=== PATIENT | female | born 1940 | race Caucasian/White ===

== ENCOUNTER 2020-06-23 12:53 | Outpatient (CLI) | payer MEDICARE, SELFPAY ==
--- NOTE | 2020-06-23 12:59 | XR_ITS ---
WS: [id number] Bone mineral density performed on a MiniVax IDXA, 06/23/2020 Clinical data: ASYMTOMATIC MENOPAUSAL STATE Comparison study: DEXA scan, 05/07/2018. Findings: The first 4 lumbar vertebral bodies demonstrated the bone mineral density of 1.613 g/cm2 for a young adult T score of 3.6. Measurement of the left hip reveals a bone mineral density of 0.923 g/cm2 with a young adult T score of -0.7. Measurement of the right hip reveals the bone mineral density of 0.943 g/cm2 for young adult T score of -0.5. XR/XR DEXA axial skeleton* [id number] Impression: 1. Normal bone mineral density of the lumbar spine with minimal decrease in bon e mineral density compared to prior study. 2. Normal bone mineral density of both hips with moderate decrease in bone mine ral density of density compared to prior study.
--- NOTE | 2020-06-23 13:01 | XR_ITS ---
WS: [id number] Right knee, 3 views, 06/23/2020 Clinical Data: UNILATERAL PRIMARY OSTEOARTHRITIS, UNSPECIFIED KNEE Comparison: None. Findings: No fractures or dislocations are seen. There is medial joint compartment narrowing. There are spurs o f the medial and lateral tibial plateaus and of the medial and lateral lateral femoral condyles. The patella shows posterior spurring.The soft tissues are normal. XR/XR knee RT 3V* [id number] Impression: Moderate osteoarthritis involving the medial joint space and posterior patella of the right knee.
--- NOTE | 2020-06-23 13:01 | XR_ITS ---
WS: [id number] Left knee, 3 views, 06/23/2020 Clinical Data: UNILATERAL PRIMARY OSTEOARTHRITIS, UNSPECIFIED KNEE Comparison: None. Findings: No fractures or dislocations are seen. There is medial joint compartment narrowing with spurring of t he medial and lateral tibial plateaus and medial lateral femoral condyles. There is posterior patella r spurring.The soft tissues are normal XR/XR knee LT 3V* [id number] Impression: Osteoarthritis of the left knee involving mostly the medial joint compartment a nd posterior patella.
== END 2020-06-23 12:54 | disposition home or self-care (01) ==
PROVIDERS: PCP Family Medicine; Visit Provider Family Medicine
DX: Z78.0 Asymptomatic menopausal state (principal); M17.0 Bilateral primary osteoarthritis of knee
CPT/HCPCS: 73562; 77080

== ENCOUNTER 2020-08-18 10:53 | Outpatient (CLI) | payer MEDICARE, SELFPAY ==
--- NOTE | 2020-08-18 10:58 | MM_ITS ---
WS: [id number] BILATERAL SCREENING DIGITAL MAMMOGRAM WITH CAD HISTORY: SCREENING COMPARISON: 05/07/2018 and 01/24/2017 Bilateral CC and MLO views submitted. Computer aided detection analyzed. Breast composition: There are scattered areas of fibroglandular density. No suspicious masses, microc alcifications or architectural distortion. Benign calcifications in each breast. MM/[place] [id number] IMPRESSION: BI-RADS: 2-Benign FOLLOW UP: 1 Year Follow-up
== END 2020-08-18 10:54 | disposition home or self-care (01) ==
LOC: RADSHAW 10:57
PROVIDERS: PCP Family Medicine; Visit Provider Family Medicine
DX: Z12.31 Encounter for screening mammogram for malignant neoplasm of breast (principal)
CPT/HCPCS: 77067

== ENCOUNTER 2021-12-03 15:25 | Outpatient (CLI) | payer MEDICARE, SELFPAY ==
--- NOTE | 2021-12-03 15:39 | MM_ITS ---
WS: [id number] BILATERAL SCREENING 3D TOMOSYNTHESIS DIGITAL MAMMOGRAM WITH CAD HISTORY: SCREENING COMPARISON: 08/18/2020 and 05/07/2018 Bilateral CC and MLO views submitted. Computer aided detection analyzed. Breast composition: There are scattered areas of fibroglandular density. No suspicious masses, microc alcifications or architectural distortion. MM/[place] [id number] IMPRESSION: BI-RADS: 2-Benign FOLLOW UP: 1 Year Follow-up
== END 2021-12-03 15:26 | disposition home or self-care (01) ==
LOC: RAD 15:27
PROVIDERS: PCP Family Medicine; Visit Provider Family Medicine
DX: Z12.31 Encounter for screening mammogram for malignant neoplasm of breast (principal)
CPT/HCPCS: 77063; 77067

== ENCOUNTER 2022-06-23 13:51 | Outpatient (CLI) | payer MEDICARE, SELFPAY ==
--- NOTE | 2022-06-23 14:03 | XR_ITS ---
WS: [id number] DEXA (DUAL ENERGY X-RAY ABSORPTIOMETRY) Bone mineral density was performed using a [employer] machine. HISTORY: ASYMPTOMATIC MENOPAUSAL STATE COMPARISON: 06/23/2020 Lumbar spine BMD (L1-L4): 1.674 g/cm2 T score: 4.1 Z score: 4.8 Total hip BMD: Left: 0.811 g/cm2. T score: -1.6 Z score: -0.3 Right: 0.962 g/cm2. T score: -0.4 Z score: 0.9 10 year probability of a major osteoporotic fracture is 14.7%. Compared to the prior study from 06/23/2020. Lumbar spine bone mineral density has increased by 3.8%. Bilateral hips bone mineral density has decreased by 4.9%. XR/XR DEXA axial skeleton* [id number] IMPRESSION: OSTEOPENIA based upon the WHO classification for females. Significant decrease in bone mineral density within the hips since the prior st udy. Significant increase in bone mineral density within the lumbar spine since the prior study.
== END 2022-06-23 13:52 | disposition home or self-care (01) ==
LOC: RAD 13:52
PROVIDERS: PCP Family Medicine; Visit Provider Family Medicine
DX: Z78.0 Asymptomatic menopausal state (principal); M85.80 Other specified disorders of bone density and structure, unspecified site
CPT/HCPCS: 77080

== ENCOUNTER 2023-04-04 09:29 | Outpatient (CLI) | payer MEDICARE, SELFPAY ==
--- NOTE | 2023-04-04 09:49 | MM_ITS ---
WS: [id number] BILATERAL 3D TOMOSYNTHESIS DIGITAL SCREENING MAMMOGRAPHY WITH CAD CLINICAL INFORMATION: SCREENING HISTORY: Screening mammogram. No current complaints. COMPARISON: 2021 TECHNIQUE: Bilateral CC and MLO views. FINDINGS: Scattered fibroglandular densities bilaterally. No suspicious focal mass, asymmetry, calcifications, or architectural distortion. No evidence of malignancy. Punctate and lucent centered calcifications. Vascular calcification. IMPRESSION: MM/[place] [id number] BI-RADS: 2-Benign FOLLOW UP: 1 Year Follow-up Recommend return to annual screening mammography.
== END 2023-04-04 09:30 | disposition home or self-care (01) ==
LOC: RAD 09:31
PROVIDERS: PCP Family Medicine; Visit Provider Family Medicine
DX: Z12.31 Encounter for screening mammogram for malignant neoplasm of breast (principal)
CPT/HCPCS: 77063; 77067

== ENCOUNTER 2024-06-28 09:00 | Outpatient (CLI) | payer MEDICARE, SELFPAY ==
--- NOTE | 2024-06-28 09:03 | MM_ITS ---
WS: [id number] Bilateral screening 3D tomosynthesis digital mammogram, 06/28/2024 9:03 AM Clinical Data: SCREENING Comparison: 04/04/2023, 12/03/2021, 08/18/2020, 04/17/2018, 01/24/2017, 07/20/2015, 07/29/2013, 02/02/2011, , 01/25/2006. Findings: No spiculated masses or clustered calcifications are seen. There are no secondary signs of carcinoma . MM/MM [facility] tomosynthesis [id number] Impression: Negative bilateral mammogram unchanged. Recommend annual screening mammograms. BIRADS: 1 - Negative. FOLLOW UP: 1 Year Follow-up DENSITY: There are scattered areas of fibroglandular density. The CAD tool design checker was used
== END 2024-06-28 09:03 | disposition home or self-care (01) ==
PROVIDERS: PCP Family Medicine; Visit Provider Family Medicine
DX: Z12.31 Encounter for screening mammogram for malignant neoplasm of breast (principal)
CPT/HCPCS: 77063; 77067

== ENCOUNTER 2024-12-12 13:09 | Outpatient (CLI) | payer MEDICARE, SELFPAY ==
--- NOTE | 2024-12-12 13:15 | XR_ITS ---
WS: [id number] SCREENING DEXA SCAN TNC CLINICAL INFORMATION: POSTMENOPAUSAL COMPARISON: 2021 FINDINGS: The L1-L4 bone mineral density measures 1.644 g/cm2. This corresponds to a T score score of 3.9 and Z score of 4.6. Left femoral neck bone mineral density measures 0.880 g/cm2. This corresponds to a T score of -1.0 and Z score of 0.4. Right femoral neck bone mineral density measures 0.959 g/cm2. This corresponds to a T score -0.4of and Z score of 1.0. Mean femoral neck bone mineral density measures 0.919 g/cm2. This corresponds to a T score of -0.7 and Z score of 0.7. XR/XR DEXA axial skeleton* [id number] IMPRESSION: Normal bone mineralization. Patient's FRAX calculated 10 year probability for major osteoporotic fracture i s 12.1% and osteoporotic hip fracture is 3.0%. Bone mineralization lumbar spine decreased -1.8% Bone mineralization femoral necks increased 3.6%
== END 2024-12-12 13:10 | disposition home or self-care (01) ==
PROVIDERS: PCP Family Medicine; Visit Provider Family Medicine
DX: Z78.0 Asymptomatic menopausal state (principal)
CPT/HCPCS: 77080